=== PATIENT | male | born 1965 | race Caucasian/White ===

== ENCOUNTER 2023-02-22 17:52 | Outpatient (NON) | payer BC, SELFPAY ==
[2023-02-22 18:21] LABS: Hematocrit 35.7 % (42.0-52.0); Hemoglobin 11.2 g/dL (14.0-18.0); Mean Corpuscular HGB Conc 31.4 g/dl (32-36); Mean Corpuscular Hemoglobin 29.6 pg (26-34); Mean Corpuscular Volume 94.4 fl (80-100); Mean Platelet Volume 10.6 fl (7.4-10.4); Platelet Count Result 351 k/mm3 (150-375); Red Blood Count 3.78 M/mm3 (4.6-6.20); White Blood Count 12.7 K/mm3 (4.5-10.0)
[2023-02-22 18:32] LABS: Alanine Aminotransferase 11 U/L (6-50); Albumin Level 3.8 g/dL (3.5-5.1); Alkaline Phosphatase 63 U/L (38-126); Anion Gap 3 mmol/L (8-16); Aspartate Amino Transferase 24 U/L (17-59); Bilirubin,Total 0.4 mg/dL (0.2-1.3); Blood Urea Nitrogen 40 mg/dL (9-20); Calcium 8.8 mg/dL (8.4-10.2); Carbon Dioxide 32 mmol/L (22-30); Chloride 100 mmol/L (98-107); Cholesterol 132 mg/dL (0-200); Estimated Glomerular Filt Rate 39; Glucose 112 mg/dL (65-110); HDL Direct 39 mg/dL; Potassium 3.9 mmol/L (3.4-5.0); Sodium 135 mmol/L (137-145); Triglycerides 100 mg/dL (<150)
[2023-02-22 18:33] LABS: Iron 35 ug/dL (49-181)
[2023-02-22 18:42] LABS: Percent Iron Saturation 15 % (20-50)
[2023-02-22 18:43] LABS: LDL Cholesterol Direct 60 mg/dL
[2023-02-22 19:02] LABS: Thyroid Stimulating Hormone 0.949 uIU/mL (0.465-4.680)
== END 2023-02-22 17:53 | disposition home or self-care (01) ==
PROVIDERS: PCP Internal Medicine; Visit Provider Internal Medicine
DX: I73.9 Peripheral vascular disease, unspecified (principal); D64.9 Anemia, unspecified; N18.32 Chronic kidney disease, stage 3b; R63.4 Abnormal weight loss; E78.5 Hyperlipidemia, unspecified; Z86.39 Personal history of other endocrine, nutritional and metabolic disease
CPT/HCPCS: 80053; 80061; 82728; 83540; 83550; 84443; 85027

== ENCOUNTER 2023-02-24 16:59 | Outpatient (NON) | payer BC, SELFPAY ==
[2023-02-24 17:30] LABS: Appearance Urine Clear (Clear); Bacteria Urine None Seen /hpf; Bilirubin Urine Negative (Negative); Blood Urine Negative (Negative); Color Urine Yellow (Yellow); Glucose Urine UA Negative (Negative); Ketones Urine Negative (Negative); Leukocyte Esterase Ur Trace LEU/UL (NEGATIVE); Nitrate Urine Negative (Negative); Non Pathogenic Casts 0-2; Protein Urine Negative (Negative); RBC Urine 0-2 /hpf (0-2); Specific Grav Ur 1.014 (1.001-1.035); Squamous Epithelial Cell Urine None seen /hpf (Few); Urobilinogen Urine 0.2 mg/dL (<2.0); WBC Urine 0-5 /hpf (0-3); pH Urine 5.5 (5.0-9.0)
[2023-02-24 17:34] LABS: IFOB Positive Control Positive; Immunochemical Fecal Occult Bl Negative (N)
[2023-02-24 17:40] LABS: Add Urine Microscopic? YES
== END 2023-02-24 17:00 | disposition home or self-care (01) ==
PROVIDERS: PCP Internal Medicine; Visit Provider Internal Medicine
DX: I73.9 Peripheral vascular disease, unspecified (principal); D64.9 Anemia, unspecified; N18.32 Chronic kidney disease, stage 3b; R63.4 Abnormal weight loss; E78.5 Hyperlipidemia, unspecified; Z86.39 Personal history of other endocrine, nutritional and metabolic disease
CPT/HCPCS: 81001; 82274

== ENCOUNTER 2023-03-17 14:33 | Outpatient (NON) | payer BC, SELFPAY ==
[2023-03-17 16:27] LABS: Hematocrit 36.8 % (42.0-52.0); Hemoglobin 11.4 g/dL (14.0-18.0); Mean Corpuscular Hemoglobin 29.4 pg (26-34); Mean Corpuscular Volume 94.8 fl (80-100); Mean Platelet Volume 11.3 fl (7.4-10.4); Platelet Count Result 329 k/mm3 (150-375); Red Blood Count 3.88 M/mm3 (4.6-6.20); Red Cell Distribution Width 13.7 % (11.5-14.5); White Blood Count 11.4 K/mm3 (4.5-10.0)
[2023-03-17 16:35] LABS: Alanine Aminotransferase 14 U/L (6-50); Albumin Level 3.8 g/dL (3.5-5.1); Alkaline Phosphatase 60 U/L (38-126); Anion Gap 9 mmol/L (8-16); Aspartate Amino Transferase 24 U/L (17-59); Bilirubin,Total 0.4 mg/dL (0.2-1.3); Blood Urea Nitrogen 36 mg/dL (9-20); Calcium 8.8 mg/dL (8.4-10.2); Carbon Dioxide 30 mmol/L (22-30); Chloride 102 mmol/L (98-107); Cholesterol 133 mg/dL (0-200); Estimated Glomerular Filt Rate 52; Glucose 78 mg/dL (65-110); HDL Direct 47 mg/dL; Potassium 3.9 mmol/L (3.4-5.0); Sodium 141 mmol/L (137-145); Triglycerides 68 mg/dL (<150)
[2023-03-17 16:46] LABS: LDL Cholesterol Direct 61 mg/dL
[2023-03-17 16:50] LABS: Iron 56 ug/dL (49-181)
[2023-03-17 17:01] LABS: Percent Iron Saturation 21 % (20-50)
[2023-03-17 18:11] LABS: Hemoglobin A1C 7.2 % (<5.7)
== END 2023-03-17 14:34 | disposition home or self-care (01) ==
LOC: HOME HLTH 14:36
PROVIDERS: PCP Internal Medicine; Visit Provider Internal Medicine
DX: E78.5 Hyperlipidemia, unspecified (principal); E11.319 Type 2 diabetes mellitus with unspecified diabetic retinopathy without macular edema; D50.9 Iron deficiency anemia, unspecified; Z47.81 Encounter for orthopedic aftercare following surgical amputation; Z89.421 Acquired absence of other right toe(s); Z89.411 Acquired absence of right great toe
CPT/HCPCS: 80053; 80061; 82728; 83036; 83540; 83550; 85027

== ENCOUNTER 2024-08-11 18:28 | Emergency (ER) | payer BC, SELFPAY ==
[2024-08-11 19:01] VITALS: BP 133/71; PULSE 110; RESP 16; TEMP 36.4; O2SAT 100
--- NOTE | 2024-08-11 19:09 | ED.WOUNDLAC ---
HPI - Wound/Laceration General Chief Complaint: Wound/Laceration Stated Complaint: surgical wound check Time Seen by Provider: 08/11/24 19:09 Source: patient, RN notes reviewed and old records reviewed Mode of arrival: ambulatory Limitations: no limitations History of Present Illness HPI narrative: patient status post left BKA, surgery at [facility] over the summer, presents with concerns about his chronic wounds. In addition to the wound at the base of his stump, he is concerned about a pressure wound to the ball of the right foot. He was seen by his creative writer this past Wednesday and by his surgeon this past Wednesday. He has clindamycin and ciprofloxacin on hand from his specialists, had not been taking any, began taking some when he noticed some changes to the wound yesterday. He reports that there has been some increased redness around the wound beds, some drainage. Denies any increased pain. Denies any fever, chills, sweats. Denies any foul odor. Says he just wanted somebody to take a look and see if he was correct in taking his antibiotics as prescribed. Related Data Home Medications Medication Instructions Recorded Confirmed bempedoic acid 180 mg tablet 180 mg PO USEASDIRECTD 06/12/24 08/16/24 (Nexletol) clopidogrel 75 mg tablet 75 mg PO DAILY 06/12/24 08/16/24 cyclosporine 0.05 % eye drops 1 drp EACH EYE Q12H 06/12/24 08/16/24 dorzolamide 2 % eye drops 1 drp EACH EYE BID 06/12/24 08/16/24 glucagon 3 mg/actuation nasal 3 mg intranasal PRN PRN 06/12/24 08/16/24 spray (Baqsimi) Hypoglycemia multivitamin 1 tablet PO QAM 06/12/24 08/16/24 pitavastatin calcium 1 mg tablet 1 mg PO USEASDIRECTD 06/12/24 08/16/24 (Livalo) sodium chloride 5 % eye ointment 1 applic EACH EYE HS 06/12/24 08/16/24 timolol 0.5 % eye drops 1 drp EACH EYE BID 06/12/24 08/16/24 cyclosporine 0.05 % eye drops in a 1 drp EACH EYE Q12H 08/11/24 08/16/24 dropperette (Restasis) hydrochlorothiazide 12.5 mg capsule 12.5 mg PO DAILY 08/11/24 08/16/24 insulin lispro 100 unit/mL See Rx Instructions .Route .COMPLEX 08/11/24 08/16/24 subcutaneous cartridge (Humalog U-100 Insulin) rivaroxaban 2.5 mg tablet (Xarelto) 2.5 mg PO DAILY 08/11/24 08/16/24 Allergies Allergy/AdvReac Type Severity Reaction Status Date / Time mold Allergy Unknown Sneezing Verified 08/16/24 19:31 codeine Allergy VOMITING Verified 08/16/24 19:31 diazepam Allergy Verified 08/16/24 19:31 DIFFICULITY STANDING amlodipine [From [facility]] AdvReac Unknown Verified 08/16/24 19:31 atorvastatin AdvReac Unknown Verified 08/16/24 19:31 bee Allergy Severe Anaphylaxis Uncoded 08/16/24 19:31 hornet Allergy Severe Anaphylaxis Uncoded 08/16/24 19:31 wasp Allergy Severe Anaphylaxis Uncoded 08/16/24 19:31 dust mites Allergy Intermediate Itching Uncoded 08/16/24 19:31 Review of Systems Review of Systems: All systems reviewed & are unremarkable except as noted in HPI and below Constitutional: Constitutional: Reports no additional constitutional complaints ENT: Reports system reviewed and no additional complaints, except as documented Cardiovascular: Cardiovascular: Reports no additional cardiovascular complaints Respiratory: Respiratory: Reports no additional respiratory complaints Gastrointestinal: Gastrointestinal: Reports no additional gastrointestinal complaints Integumentary/Breasts: Skin/Breast: Reports system reviewed and no additional complaints, except as docu, Reports as per HPI, Reports erythema, Reports skin ulcer and Reports wounds PMFSH Past Medical History Medical History Below-knee amputation of left lower extremity CKD (chronic kidney disease) Gait abnormality Impaired mobility and ADLs Osteomyelitis of left foot Social History Social History Smoking status: Never smoker Second hand tobacco smoke exposure: Yes Alcohol intake: unknown Substance us
[2024-08-11 19:10] VITALS: BP 133/71; PULSE 110; RESP 16; TEMP 36.4; O2SAT 100
== END 2024-08-11 19:41 | disposition home or self-care (01) ==
PROVIDERS: Emergency Provider Nurse Practitioner Family; PCP Internal Medicine
DX: T87.89 Other complications of amputation stump (principal); L89.891 Pressure ulcer of other site, stage 1; Z89.512 Acquired absence of left leg below knee; Z79.01 Long term (current) use of anticoagulants; I12.9 Hypertensive chronic kidney disease with stage 1 through stage 4 chronic kidney disease, or unspecified chronic kidney disease; E11.22 Type 2 diabetes mellitus with diabetic chronic kidney disease; N18.9 Chronic kidney disease, unspecified; Z79.4 Long term (current) use of insulin; Z96.41 Presence of insulin pump (external) (internal); I73.9 Peripheral vascular disease, unspecified; E11.43 Type 2 diabetes mellitus with diabetic autonomic (poly)neuropathy; K31.84 Gastroparesis
CPT/HCPCS: 99212; G0463

== ENCOUNTER 2024-08-12 15:24 | Emergency (ER) | payer BC, SELFPAY ==
[2024-08-12 15:42] VITALS: BP 144/67; PULSE 86; RESP 16; TEMP 36.6; O2SAT 98
--- NOTE | 2024-08-12 16:51 | ED.WOUNDLAC ---
HPI - Wound/Laceration General Chief Complaint: Wound/Laceration Stated Complaint: Infection concern,bottom right foot,incision site Source: patient, RN notes reviewed and old records reviewed Mode of arrival: ambulatory Limitations: no limitations History of Present Illness HPI narrative: patient presents requesting wound check. Patient was seen by me at a [facility] yesterday. He was advised to follow with his specialist or go to emergency department with any further concerns. States that he is taking antibiotics as prescribed by his specialist, but wants an opinion on whether or not they are working. He denies any fever, chills, sweats. Says he just wants somebody to look at his wounds Related Data Home Medications Medication Instructions Recorded Confirmed bempedoic acid 180 mg tablet 180 mg PO USEASDIRECTD 06/12/24 08/16/24 (Nexletol) clopidogrel 75 mg tablet 75 mg PO DAILY 06/12/24 08/16/24 cyclosporine 0.05 % eye drops 1 drp EACH EYE Q12H 06/12/24 08/16/24 dorzolamide 2 % eye drops 1 drp EACH EYE BID 06/12/24 08/16/24 glucagon 3 mg/actuation nasal 3 mg intranasal PRN PRN 06/12/24 08/16/24 spray (Baqsimi) Hypoglycemia multivitamin 1 tablet PO QAM 06/12/24 08/16/24 pitavastatin calcium 1 mg tablet 1 mg PO USEASDIRECTD 06/12/24 08/16/24 (Livalo) sodium chloride 5 % eye ointment 1 applic EACH EYE HS 06/12/24 08/16/24 timolol 0.5 % eye drops 1 drp EACH EYE BID 06/12/24 08/16/24 cyclosporine 0.05 % eye drops in a 1 drp EACH EYE Q12H 08/11/24 08/16/24 dropperette (Restasis) hydrochlorothiazide 12.5 mg capsule 12.5 mg PO DAILY 08/11/24 08/16/24 insulin lispro 100 unit/mL See Rx Instructions .Route .COMPLEX 08/11/24 08/16/24 subcutaneous cartridge (Humalog U-100 Insulin) rivaroxaban 2.5 mg tablet (Xarelto) 2.5 mg PO DAILY 08/11/24 08/16/24 Allergies Allergy/AdvReac Type Severity Reaction Status Date / Time mold Allergy Unknown Sneezing Verified 08/16/24 19:31 codeine Allergy VOMITING Verified 08/16/24 19:31 diazepam Allergy Verified 08/16/24 19:31 DIFFICULITY STANDING amlodipine [From [facility]] AdvReac Unknown Verified 08/16/24 19:31 atorvastatin AdvReac Unknown Verified 08/16/24 19:31 bee Allergy Severe Anaphylaxis Uncoded 08/16/24 19:31 hornet Allergy Severe Anaphylaxis Uncoded 08/16/24 19:31 wasp Allergy Severe Anaphylaxis Uncoded 08/16/24 19:31 dust mites Allergy Intermediate Itching Uncoded 08/16/24 19:31 Review of Systems Review of Systems: All systems reviewed & are unremarkable except as noted in HPI and below Constitutional: Constitutional: Reports no additional constitutional complaints ENT: Reports system reviewed and no additional complaints, except as documented Cardiovascular: Cardiovascular: Reports no additional cardiovascular complaints Respiratory: Respiratory: Reports no additional respiratory complaints Gastrointestinal: Gastrointestinal: Reports no additional gastrointestinal complaints Integumentary/Breasts: Skin/Breast: Reports system reviewed and no additional complaints, except as docu, Reports as per HPI, Reports skin ulcer ( ball of right foot) and Reports wounds ( stump of BKA, left side) PMFSH Past Medical History Medical History Below-knee amputation of left lower extremity CKD (chronic kidney disease) Gait abnormality Impaired mobility and ADLs Osteomyelitis of left foot Social History Social History Smoking status: Never smoker Second hand tobacco smoke exposure: Yes Alcohol intake: unknown Substance use: never Substance use type: does not use Do You Feel Safe in your Home?: Yes Lack of Transportation: No Lack of Food: Never True Current Housing: I Have Housing Concerned About Future Housing: No Difficulty Paying Gas/Electric Bills: No Difficulty Paying for Meds: No Currently Unemployed: No Education:
== END 2024-08-12 19:55 | disposition home or self-care (01) ==
PROVIDERS: Emergency Provider Nurse Practitioner Family; PCP Internal Medicine
DX: S91.301A Unspecified open wound, right foot, initial encounter (principal)
CPT/HCPCS: 99212; G0463

== ENCOUNTER 2024-08-16 19:29 | Emergency (ER) | payer BC, SELFPAY ==
--- NOTE | 2024-08-16 19:35 | ED.GENADULT ---
HPI - General Adult General Chief complaint: Wound/Laceration Stated complaint: Lt left leg and Rt leg wound Time Seen by Provider: 08/16/24 19:45 Source: patient, RN notes reviewed and old records reviewed Mode of arrival: ambulatory Limitations: no limitations History of Present Illness HPI narrative: 58-year-old male presents to the [facility] for wounds to the right and left leg. Was evaluated both on the and 12 of August for a wound check. HX of BKA on left , scabs noted. No signs of infection. multiple of toes amputated right, Healed. pressure ulcer noted to planter aspect, apx 2cm diameter, scant amount of serous sanguinous drainage. states that they had been seen at [facility] for 6 week, wound care. Was told they could not return to [facility] further wound care needs. reports he had been seen yesterday at wound care either at [facility] or [facility] in [place] is in the process of changing deployment specialist Reports has a appointment at [facility] tomorrow for therapy Reports they are still take antibiotics that were prescribed Related Data Home Medications Medication Instructions Recorded Confirmed bempedoic acid 180 mg tablet 180 mg PO USEASDIRECTD 06/12/24 08/16/24 (Nexletol) clopidogrel 75 mg tablet 75 mg PO DAILY 06/12/24 08/16/24 cyclosporine 0.05 % eye drops 1 drp EACH EYE Q12H 06/12/24 08/16/24 dorzolamide 2 % eye drops 1 drp EACH EYE BID 06/12/24 08/16/24 glucagon 3 mg/actuation nasal 3 mg intranasal PRN PRN 06/12/24 08/16/24 spray (Baqsimi) Hypoglycemia multivitamin 1 tablet PO QAM 06/12/24 08/16/24 pitavastatin calcium 1 mg tablet 1 mg PO USEASDIRECTD 06/12/24 08/16/24 (Livalo) sodium chloride 5 % eye ointment 1 applic EACH EYE HS 06/12/24 08/16/24 timolol 0.5 % eye drops 1 drp EACH EYE BID 06/12/24 08/16/24 cyclosporine 0.05 % eye drops in a 1 drp EACH EYE Q12H 08/11/24 08/16/24 dropperette (Restasis) hydrochlorothiazide 12.5 mg capsule 12.5 mg PO DAILY 10/04/24 10/09/24 insulin lispro 100 unit/mL See Rx Instructions .Route .COMPLEX 08/11/24 08/16/24 subcutaneous cartridge (Humalog U-100 Insulin) rivaroxaban 2.5 mg tablet (Xarelto) 2.5 mg PO DAILY 08/11/24 08/16/24 Allergies Allergy/AdvReac Type Severity Reaction Status Date / Time mold Allergy Unknown Sneezing Verified 08/16/24 19:31 codeine Allergy VOMITING Verified 08/16/24 19:31 diazepam Allergy Verified 08/16/24 19:31 DIFFICULITY STANDING amlodipine [From [facility]] AdvReac Unknown Verified 08/16/24 19:31 atorvastatin AdvReac Unknown Verified 08/16/24 19:31 bee Allergy Severe Anaphylaxis Uncoded 08/16/24 19:31 hornet Allergy Severe Anaphylaxis Uncoded 08/16/24 19:31 wasp Allergy Severe Anaphylaxis Uncoded 08/16/24 19:31 dust mites Allergy Intermediate Itching Uncoded 08/16/24 19:31 Review of Systems Review of Systems: All systems reviewed & are unremarkable except as noted in HPI and below Constitutional: Constitutional: Reports no additional constitutional complaints Musculoskeletal: Musculoskeletal: Reports as per HPI Integumentary/Breasts: Skin/Breast: Reports as per HPI Neurologic: Reports system reviewed and no additional complaints, except as documented Psychiatric: Psychiatric: Reports no additional psychiatric complaints [facility] Past Medical History Medical History Below-knee amputation of left lower extremity CKD (chronic kidney disease) Gait abnormality Impaired mobility and ADLs Osteomyelitis of left foot Social History Social History Smoking status: Never smoker Second hand tobacco smoke exposure: Yes Alcohol intake: unknown Substance use: never Substance use type: does not use Do You Feel Safe in your Home?: Yes Lack of Transportation: No Lack of Food: Never True Current Housing: I Have Housing Concerned About Future Housing: No Difficulty Paying Gas/Electric Bills: No Diffic
[2024-08-16 19:45] VITALS: BP 143/71; PULSE 87; RESP 16; TEMP 36.8; O2SAT 100
== END 2024-08-16 20:15 | disposition home or self-care (01) ==
PROVIDERS: Emergency Provider Nurse Practitioner; PCP Internal Medicine
DX: Z48.01 Encounter for change or removal of surgical wound dressing (principal); L89.899 Pressure ulcer of other site, unspecified stage; Z89.512 Acquired absence of left leg below knee; N18.9 Chronic kidney disease, unspecified
CPT/HCPCS: 99212; G0463

== ENCOUNTER 2024-08-23 18:48 | Emergency (ER) | payer BC, SELFPAY ==
[2024-08-23 19:03] VITALS: BP 140/71; PULSE 85; RESP 16; TEMP 36.6; O2SAT 100
--- NOTE | 2024-08-23 19:25 | ED.WOUNDLAC ---
HPI - Wound/Laceration General Chief Complaint: Wound/Laceration Stated Complaint: surgical wound check Time Seen by Provider: 08/23/24 19:10 Source: patient, RN notes reviewed and old records reviewed Mode of arrival: ambulatory Limitations: no limitations History of Present Illness HPI narrative: 58 year old male presents to express care accompanied by presents to express care for wound care and evaluation of wounds of right lower foot and of stump of left leg.Patient reports that they saw wound care 8 days ago and have an appointment for wound care tomorrow for evaluation of wounds. states that they saw surgeon yesterday. They are here today for dressing changes states that dressings have to be changed daily no not have home health care in home and she does not feel comfortable doing dressing changes,states needs to be a professional. Patient is diabetic and wears insulin pump. Treatments prior to arrival: other (Patient is followed by wound care and surgeon in [facility]) Related Data Home Medications Medication Instructions Recorded Confirmed bempedoic acid 180 mg tablet 180 mg PO USEASDIRECTD 06/12/24 08/25/24 (Nexletol) clopidogrel 75 mg tablet 75 mg PO DAILY 06/12/24 08/25/24 cyclosporine 0.05 % eye drops 1 drp EACH EYE Q12H 06/12/24 08/25/24 dorzolamide 2 % eye drops 1 drp EACH EYE BID 06/12/24 08/25/24 glucagon 3 mg/actuation nasal 3 mg intranasal PRN PRN 06/12/24 08/25/24 spray (Baqsimi) Hypoglycemia multivitamin 1 tablet PO QAM 06/12/24 08/25/24 pitavastatin calcium 1 mg tablet 1 mg PO USEASDIRECTD 06/12/24 08/25/24 (Livalo) sodium chloride 5 % eye ointment 1 applic EACH EYE HS 06/12/24 08/25/24 timolol 0.5 % eye drops 1 drp EACH EYE BID 06/12/24 08/25/24 cyclosporine 0.05 % eye drops in a 1 drp EACH EYE Q12H 08/11/24 08/25/24 dropperette (Restasis) hydrochlorothiazide 12.5 mg capsule 12.5 mg PO DAILY 08/11/24 08/25/24 insulin lispro 100 unit/mL See Rx Instructions .Route .COMPLEX 08/11/24 08/25/24 subcutaneous cartridge (Humalog U-100 Insulin) rivaroxaban 2.5 mg tablet (Xarelto) 2.5 mg PO DAILY 08/11/24 08/25/24 Allergies Allergy/AdvReac Type Severity Reaction Status Date / Time mold Allergy Unknown Sneezing Verified 08/25/24 18:43 codeine Allergy VOMITING Verified 08/25/24 18:43 diazepam Allergy Verified 08/25/24 18:43 DIFFICULITY STANDING amlodipine [From [facility]] AdvReac Unknown Verified 08/25/24 18:43 atorvastatin AdvReac Unknown Verified 08/25/24 18:43 bee Allergy Severe Anaphylaxis Uncoded 08/25/24 18:43 hornet Allergy Severe Anaphylaxis Uncoded 08/25/24 18:43 wasp Allergy Severe Anaphylaxis Uncoded 08/25/24 18:43 dust mites Allergy Intermediate Itching Uncoded 08/25/24 18:43 Review of Systems Review of Systems: CONSTITUTIONAL: Denies fever, chills, or sweats CARDIOVASCULAR: Denies chest pain, palpitations, or edema. RESPIRATORY: Denies cough or dyspnea. GASTROINTESTINAL: Denies abdominal pain, nausea, vomiting SKIN: Here today for evaluation of wound to the right foot plantar aspect on ball of foot below great toe and of stump of left leg where previous amputation was performed. MUSCULOSKELETAL: Denies myalgia. NEUROLOGIC: Denies headache, numbness All systems reviewed & are unremarkable except as noted in HPI and below PMFSH Past Medical History Medical History Below-knee amputation of left lower extremity CKD (chronic kidney disease) Gait abnormality Impaired mobility and ADLs Osteomyelitis of left foot Social History Social History Smoking status: Never smoker Second hand tobacco smoke exposure: Yes Alcohol intake: unknown Substance use: never Substance use type: does not use Do You Feel Safe in your Home?: Yes Lack of Transportation: No Lack of Food: Never True Current Housing: I Have Housing Concerned About Future Housing: N
== END 2024-08-23 20:00 | disposition home or self-care (01) ==
PROVIDERS: Emergency Provider Registered Nurse; PCP Internal Medicine
DX: Z48.01 Encounter for change or removal of surgical wound dressing (principal); L89.899 Pressure ulcer of other site, unspecified stage; Z89.512 Acquired absence of left leg below knee; N18.9 Chronic kidney disease, unspecified
CPT/HCPCS: 99212; G0463

== ENCOUNTER 2024-08-25 18:36 | Emergency (ER) | payer BC, SELFPAY ==
--- NOTE | 2024-08-25 18:43 | ED.SKABFB ---
HPI - Skin/Abscess/Foreign Bdy General Chief complaint: Skin/Abscess/Foreign Body Stated complaint: Checking dressing on foot Time Seen by Provider: 08/25/24 18:43 Source: patient, RN notes reviewed and old records reviewed Mode of arrival: ambulatory Limitations: no limitations History of Present Illness HPI narrative: Patient and present today for dressing change on patient's left lower extremity stump s/p [id number] amputation. Patient also requesting a wound check/dressing change on a pressure ulcer on the plantar aspect of the right 1st MTP. Patient has [facility] to [facility] multiple times postop requesting dressing changes. Patient was seen by his surgeon on Wednesday, by his project coordinator on Wednesday, here on Wednesday, and wound care clinic yesterday. Patient's states that she does not feel comfortable changing patient's dressings at home by herself. Related Data Home Medications Medication Instructions Recorded Confirmed bempedoic acid 180 mg tablet 180 mg PO USEASDIRECTD 06/12/24 08/27/24 (Nexletol) clopidogrel 75 mg tablet 75 mg PO DAILY 06/12/24 08/27/24 cyclosporine 0.05 % eye drops 1 drp EACH EYE Q12H 06/12/24 08/27/24 dorzolamide 2 % eye drops 1 drp EACH EYE BID 06/12/24 08/27/24 glucagon 3 mg/actuation nasal 3 mg intranasal PRN PRN 06/12/24 08/27/24 spray (Baqsimi) Hypoglycemia multivitamin 1 tablet PO QAM 06/12/24 08/27/24 pitavastatin calcium 1 mg tablet 1 mg PO USEASDIRECTD 06/12/24 08/27/24 (Livalo) sodium chloride 5 % eye ointment 1 applic EACH EYE HS 06/12/24 08/27/24 timolol 0.5 % eye drops 1 drp EACH EYE BID 06/12/24 08/27/24 cyclosporine 0.05 % eye drops in a 1 drp EACH EYE Q12H 08/11/24 08/27/24 dropperette (Restasis) hydrochlorothiazide 12.5 mg capsule 12.5 mg PO DAILY 08/11/24 08/27/24 insulin lispro 100 unit/mL See Rx Instructions .Route .COMPLEX 10/04/24 10/20/24 subcutaneous cartridge (Humalog U-100 Insulin) rivaroxaban 2.5 mg tablet (Xarelto) 2.5 mg PO DAILY 08/11/24 08/27/24 Allergies Allergy/AdvReac Type Severity Reaction Status Date / Time mold Allergy Unknown Sneezing Verified 08/27/24 17:25 codeine Allergy VOMITING Verified 08/27/24 17:25 diazepam Allergy Verified 08/27/24 17:25 DIFFICULITY STANDING amlodipine [From [facility]] AdvReac Unknown Verified 08/27/24 17:25 atorvastatin AdvReac Unknown Verified 08/27/24 17:25 bee Allergy Severe Anaphylaxis Uncoded 08/27/24 17:25 hornet Allergy Severe Anaphylaxis Uncoded 08/27/24 17:25 wasp Allergy Severe Anaphylaxis Uncoded 08/27/24 17:25 dust mites Allergy Intermediate Itching Uncoded 08/27/24 17:25 Review of Systems Review of Systems: All systems reviewed & are unremarkable except as noted in HPI and below Constitutional: Constitutional: Reports no additional constitutional complaints Eyes: Eyes: Reports no additional eye complaints ENT: Reports system reviewed and no additional complaints, except as documented Cardiovascular: Cardiovascular: Reports no additional cardiovascular complaints, Denies chest pain and Denies dyspnea Respiratory: Respiratory: Reports no additional respiratory complaints, Denies cough and Denies dyspnea Musculoskeletal: Musculoskeletal: Reports no additional musculoskeletal complaints Integumentary/Breasts: Skin/Breast: Reports as per HPI and Reports wounds Comments: post op wounds to LLE stump and right plantar foot/toe. Requesting dressing changes Neurologic: Reports system reviewed and no additional complaints, except as documented Psychiatric: Psychiatric: Reports no additional psychiatric complaints PMFSH Past Medical History Medical History Below-knee amputation of left lower extremity CKD (chronic kidney disease) Gait abnormality Impaired mobility and ADLs Osteomyelitis of left foot Social History Social History Smoking status:
[2024-08-25 18:48] VITALS: BP 128/74; PULSE 104; RESP 16; TEMP 36.6; O2SAT 98
== END 2024-08-25 19:27 | disposition home or self-care (01) ==
PROVIDERS: Emergency Provider Nurse Practitioner Family; PCP Internal Medicine
DX: Z48.01 Encounter for change or removal of surgical wound dressing (principal); E11.9 Type 2 diabetes mellitus without complications; Z89.512 Acquired absence of left leg below knee; Z79.4 Long term (current) use of insulin; Z79.899 Other long term (current) drug therapy
CPT/HCPCS: 99212; G0463

== ENCOUNTER 2024-08-26 18:15 | Emergency (ER) | payer BC, SELFPAY ==
[2024-08-26 18:36] VITALS: BP 131/67; PULSE 98; RESP 16; TEMP 36.6; O2SAT 100
--- NOTE | 2024-08-26 18:42 | ED.WOUNDLAC ---
HPI - Wound/Laceration General Chief Complaint: Wound/Laceration Stated Complaint: Left Leg Surgical Wound Irritation Time Seen by Provider: 08/26/24 18:30 Source: patient, family (), RN notes reviewed and old records reviewed Mode of arrival: ambulatory Limitations: no limitations History of Present Illness HPI narrative: Patient and present today for dressing change on patient's left lower extremity stump s/p [id number] amputation as well as a pressure ulcer the plantar aspect the right 1st MTP. Patient has been seen several times in the last couple of weeks here for dressing changes. states that due to her OCD and autism, she does not feel comfortable changing his dressings home for risk of fadi an infection, and pt states he does not trust her to not make the wraps too tight. Patient is followed by surgery, wound care, and podiatry. They do not have home health. Related Data Home Medications Medication Instructions Recorded Confirmed bempedoic acid 180 mg tablet 180 mg PO USEASDIRECTD 06/12/24 08/26/24 (Nexletol) clopidogrel 75 mg tablet 75 mg PO DAILY 06/12/24 08/26/24 cyclosporine 0.05 % eye drops 1 drp EACH EYE Q12H 06/12/24 08/26/24 dorzolamide 2 % eye drops 1 drp EACH EYE BID 06/12/24 08/26/24 glucagon 3 mg/actuation nasal 3 mg intranasal PRN PRN 06/12/24 08/26/24 spray (Baqsimi) Hypoglycemia multivitamin 1 tablet PO QAM 06/12/24 08/26/24 pitavastatin calcium 1 mg tablet 1 mg PO USEASDIRECTD 06/12/24 08/26/24 (Livalo) sodium chloride 5 % eye ointment 1 applic EACH EYE HS 06/12/24 08/26/24 timolol 0.5 % eye drops 1 drp EACH EYE BID 06/12/24 08/26/24 cyclosporine 0.05 % eye drops in a 1 drp EACH EYE Q12H 08/11/24 08/26/24 dropperette (Restasis) hydrochlorothiazide 12.5 mg capsule 12.5 mg PO DAILY 08/11/24 08/26/24 insulin lispro 100 unit/mL See Rx Instructions .Route .COMPLEX 10/04/24 10/19/24 subcutaneous cartridge (Humalog U-100 Insulin) rivaroxaban 2.5 mg tablet (Xarelto) 2.5 mg PO DAILY 08/11/24 08/26/24 Allergies Allergy/AdvReac Type Severity Reaction Status Date / Time mold Allergy Unknown Sneezing Verified 08/26/24 18:19 codeine Allergy VOMITING Verified 08/26/24 18:19 diazepam Allergy Verified 08/26/24 18:19 DIFFICULITY STANDING amlodipine [From [facility]] AdvReac Unknown Verified 08/26/24 18:19 atorvastatin AdvReac Unknown Verified 08/26/24 18:19 bee Allergy Severe Anaphylaxis Uncoded 08/26/24 18:19 hornet Allergy Severe Anaphylaxis Uncoded 08/26/24 18:19 wasp Allergy Severe Anaphylaxis Uncoded 08/26/24 18:19 dust mites Allergy Intermediate Itching Uncoded 08/26/24 18:19 Review of Systems Review of Systems: CONSTITUTIONAL: Denies body aches, fever, chills, or sweats. EYES: Denies visual changes, redness, or discharge. ENT: Denies rhinorrhea, congestion, sore throat, or otalgia. CARDIOVASCULAR: Denies chest pain, palpitations, or edema. RESPIRATORY: Denies cough or dyspnea. GASTROINTESTINAL: Denies abdominal pain, nausea, vomiting, or diarrhea. GENITOURINARY: Denies dysuria or hematuria. SKIN: Left leg wound, right foot wound MUSCULOSKELETAL: Denies back pain, joint pain, or myalgia. NEUROLOGIC: Denies headache, numbness, tingling, or weakness. PSYCH: Denies depression or anxiety. [facility] Past Medical History Medical History Below-knee amputation of left lower extremity CKD (chronic kidney disease) Gait abnormality Impaired mobility and ADLs Osteomyelitis of left foot Social History Social History Smoking status: Never smoker Second hand tobacco smoke exposure: Yes Alcohol intake: unknown Substance use: never Substance use type: does not use Do You Feel Safe in your Home?: Yes Lack of Transportation: No Lack of Food: Never True Current Housing: I Have Housing Concerned About Future Housing: No Diffic
== END 2024-08-26 18:54 | disposition home or self-care (01) ==
PROVIDERS: Emergency Provider Nurse Practitioner; PCP Internal Medicine
DX: Z48.01 Encounter for change or removal of surgical wound dressing (principal); L89.899 Pressure ulcer of other site, unspecified stage; Z89.512 Acquired absence of left leg below knee; N18.9 Chronic kidney disease, unspecified
CPT/HCPCS: 99212; G0463

== ENCOUNTER 2024-08-27 17:04 | Emergency (ER) | payer BC, SELFPAY ==
[2024-08-27 17:24] VITALS: BP 128/64; PULSE 86; RESP 16; TEMP 36.8; O2SAT 100
[2024-08-27 17:25] VITALS: BP 128/64; PULSE 86; RESP 16; TEMP 36.8; O2SAT 100
--- NOTE | 2024-08-27 17:43 | ED.GENADULT ---
HPI - General Adult General Chief complaint: Wound/Laceration Stated complaint: Wound Check Left and Right Leg/Foot Time Seen by Provider: 08/27/24 17:43 Source: patient, RN notes reviewed and old records reviewed Mode of arrival: ambulatory Limitations: no limitations History of Present Illness HPI narrative: 58-year-old male returns to the [facility] requesting a dressing change. Has a left [id number] amputation and a sore to the plantar aspect right foot. Patient has been seeking dressing changes at the [facility] for the last several days. Reports they are trying to get set up with wound as well as Podiatry at [facility] is asking for more 4x4s and Betadine. States that her having a podiatry and a wound care appointment on and Wednesday unsure of which is on which day. They are also stating they are going to try to get a ?emergency appointment with the surgeon Treatments prior to arrival: other (dressing change) Related Data Home Medications Medication Instructions Recorded Confirmed bempedoic acid 180 mg tablet 180 mg PO USEASDIRECTD 06/12/24 08/27/24 (Nexletol) clopidogrel 75 mg tablet 75 mg PO DAILY 06/12/24 08/27/24 cyclosporine 0.05 % eye drops 1 drp EACH EYE Q12H 06/12/24 08/27/24 dorzolamide 2 % eye drops 1 drp EACH EYE BID 06/12/24 08/27/24 glucagon 3 mg/actuation nasal 3 mg intranasal PRN PRN 06/12/24 08/27/24 spray (Baqsimi) Hypoglycemia multivitamin 1 tablet PO QAM 06/12/24 08/27/24 pitavastatin calcium 1 mg tablet 1 mg PO USEASDIRECTD 06/12/24 08/27/24 (Livalo) sodium chloride 5 % eye ointment 1 applic EACH EYE HS 06/12/24 08/27/24 timolol 0.5 % eye drops 1 drp EACH EYE BID 06/12/24 08/27/24 cyclosporine 0.05 % eye drops in a 1 drp EACH EYE Q12H 08/11/24 08/27/24 dropperette (Restasis) hydrochlorothiazide 12.5 mg capsule 12.5 mg PO DAILY 08/11/24 08/27/24 insulin lispro 100 unit/mL See Rx Instructions .Route .COMPLEX 08/11/24 08/27/24 subcutaneous cartridge (Humalog U-100 Insulin) rivaroxaban 2.5 mg tablet (Xarelto) 2.5 mg PO DAILY 08/11/24 08/27/24 Allergies Allergy/AdvReac Type Severity Reaction Status Date / Time mold Allergy Unknown Sneezing Verified 08/27/24 17:25 codeine Allergy VOMITING Verified 08/27/24 17:25 diazepam Allergy Verified 08/27/24 17:25 DIFFICULITY STANDING amlodipine [From Norvasc] AdvReac Unknown Verified 08/27/24 17:25 atorvastatin AdvReac Unknown Verified 08/27/24 17:25 bee Allergy Severe Anaphylaxis Uncoded 08/27/24 17:25 hornet Allergy Severe Anaphylaxis Uncoded 08/27/24 17:25 wasp Allergy Severe Anaphylaxis Uncoded 08/27/24 17:25 dust mites Allergy Intermediate Itching Uncoded 08/27/24 17:25 Review of Systems Review of Systems: All systems reviewed & are unremarkable except as noted in HPI and below Constitutional: Constitutional: Reports no additional constitutional complaints ENT: Reports system reviewed and no additional complaints, except as documented Cardiovascular: Cardiovascular: Reports no additional cardiovascular complaints, Denies chest pain and Denies dyspnea Respiratory: Respiratory: Reports no additional respiratory complaints, Denies chest congestion, Denies cough and Denies dyspnea Gastrointestinal: Gastrointestinal: Reports no additional gastrointestinal complaints, Denies abdominal pain, Denies nausea and Denies vomiting Musculoskeletal: Musculoskeletal: Reports no additional musculoskeletal complaints Integumentary/Breasts: Skin/Breast: Reports as per HPI PMF Past Medical History Medical History Below-knee amputation of left lower extremity CKD (chronic kidney disease) Gait abnormality Impaired mobility and ADLs Osteomyelitis of left foot Social History Social History Smoking status: Never smoker Second hand tobacco smoke exposure: Yes Alcohol intake: unknown Substance use: ne
== END 2024-08-27 18:15 | disposition home or self-care (01) ==
PROVIDERS: Emergency Provider Nurse Practitioner; PCP Internal Medicine
DX: Z48.01 Encounter for change or removal of surgical wound dressing (principal); L89.899 Pressure ulcer of other site, unspecified stage; Z89.512 Acquired absence of left leg below knee; N18.9 Chronic kidney disease, unspecified
CPT/HCPCS: 99212; G0463

== ENCOUNTER 2024-08-30 19:11 | Emergency (ER) | payer BC, SELFPAY ==
--- NOTE | 2024-08-30 19:28 | ED.WOUNDLAC ---
HPI - Wound/Laceration General Chief Complaint: Wound/Laceration Stated Complaint: LT Leg / Rt Foot Injury Time Seen by Provider: 08/30/24 19:40 Source: patient and RN notes reviewed Mode of arrival: ambulatory Limitations: no limitations History of Present Illness HPI narrative: 4-year-old male presents with concern for dressing change to his left leg amputation site and right foot pressure wound. Denies any current concerns, redness, warmth, purulence drainage. Related Data Home Medications Medication Instructions Recorded Confirmed bempedoic acid 180 mg tablet 180 mg PO USEASDIRECTD 06/12/24 08/27/24 (Nexletol) clopidogrel 75 mg tablet 75 mg PO DAILY 06/12/24 08/27/24 cyclosporine 0.05 % eye drops 1 drp EACH EYE Q12H 06/12/24 08/27/24 dorzolamide 2 % eye drops 1 drp EACH EYE BID 06/12/24 08/27/24 glucagon 3 mg/actuation nasal 3 mg intranasal PRN PRN 06/12/24 08/27/24 spray (Baqsimi) Hypoglycemia multivitamin 1 tablet PO QAM 06/12/24 08/27/24 pitavastatin calcium 1 mg tablet 1 mg PO USEASDIRECTD 06/12/24 08/27/24 (Livalo) sodium chloride 5 % eye ointment 1 applic EACH EYE HS 06/12/24 08/27/24 timolol 0.5 % eye drops 1 drp EACH EYE BID 06/12/24 08/27/24 cyclosporine 0.05 % eye drops in a 1 drp EACH EYE Q12H 08/11/24 08/27/24 dropperette (Restasis) hydrochlorothiazide 12.5 mg capsule 12.5 mg PO DAILY 08/11/24 08/27/24 insulin lispro 100 unit/mL See Rx Instructions .Route .COMPLEX 08/11/24 08/27/24 subcutaneous cartridge (Humalog U-100 Insulin) rivaroxaban 2.5 mg tablet (Xarelto) 2.5 mg PO DAILY 08/11/24 08/27/24 Allergies Allergy/AdvReac Type Severity Reaction Status Date / Time mold Allergy Unknown Sneezing Verified 08/27/24 17:25 codeine Allergy VOMITING Verified 08/27/24 17:25 diazepam Allergy Verified 08/27/24 17:25 DIFFICULITY STANDING amlodipine [From [facility]] AdvReac Unknown Verified 08/27/24 17:25 atorvastatin AdvReac Unknown Verified 08/27/24 17:25 bee Allergy Severe Anaphylaxis Uncoded 08/27/24 17:25 hornet Allergy Severe Anaphylaxis Uncoded 08/27/24 17:25 wasp Allergy Severe Anaphylaxis Uncoded 08/27/24 17:25 dust mites Allergy Intermediate Itching Uncoded 08/27/24 17:25 Review of Systems Review of Systems: CONSTITUTIONAL: Denies malaise, chills, sweats, or fever. SKIN: Reports chronic wounds on left leg and right foot MUSCULOSKELETAL: Denies muscle skeletal pain NEUROLOGIC: Denies numbness, weakness All systems reviewed & are unremarkable except as noted in HPI and below PMFSH Past Medical History Medical History Below-knee amputation of left lower extremity CKD (chronic kidney disease) Gait abnormality Impaired mobility and ADLs Osteomyelitis of left foot Social History Social History Smoking status: Never smoker Second hand tobacco smoke exposure: Yes Alcohol intake: unknown Substance use: never Substance use type: does not use Do You Feel Safe in your Home?: Yes Lack of Transportation: No Lack of Food: Never True Current Housing: I Have Housing Concerned About Future Housing: No Difficulty Paying Gas/Electric Bills: No Difficulty Paying for Meds: No Currently Unemployed: No Education: Don't Know Difficulty w/ Childcare or Family Care: No Spiritual care concerns: No Comments At time of signature, agree with nursing past medical, surgical, social and family history. There is no relevant family history pertinent to the presenting complaint Exam Narrative: GENERAL: Well-appearing, well-nourished, and in no acute distress. HEAD: Normocephalic, atraumatic. EYES: PERRLA, conjunctivae clear ENT: Mucous membranes moist. NECK: Supple. No lymphadenopathy CHEST: Clear to auscultation. No respiratory distress. HEART: Regular rate and rhythm. SKIN: Warm, dry. Pedal aspect of the right foot has circumferential c
[2024-08-30 19:32] VITALS: BP 136/87; PULSE 91; RESP 20; TEMP 36.2; O2SAT 100
== END 2024-08-30 19:54 | disposition home or self-care (01) ==
PROVIDERS: Emergency Provider Nurse Practitioner; PCP Internal Medicine
DX: Z48.01 Encounter for change or removal of surgical wound dressing (principal); N18.9 Chronic kidney disease, unspecified
CPT/HCPCS: 99212; G0463

== ENCOUNTER 2024-09-02 19:19 | Emergency (ER) | payer BC, SELFPAY ==
--- NOTE | 2024-09-02 19:24 | ED_ITS ---
HPI - General Adult General Chief complaint: Wound/Laceration Stated complaint: LT Leg , RT Foot Womb Related Data Home Medications Medication Instructions Recorded Confirmed bempedoic acid 180 mg tablet 180 mg PO USEASDIRECTD 06/12/24 08/27/24 (Nexletol) clopidogrel 75 mg tablet 75 mg PO DAILY 06/12/24 08/27/24 cyclosporine 0.05 % eye drops 1 drp EACH EYE Q12H 06/12/24 08/27/24 dorzolamide 2 % eye drops 1 drp EACH EYE BID 06/12/24 08/27/24 glucagon 3 mg/actuation nasal 3 mg intranasal PRN PRN 06/12/24 08/27/24 spray (Baqsimi) Hypoglycemia multivitamin 1 tablet PO QAM 06/12/24 08/27/24 pitavastatin calcium 1 mg tablet 1 mg PO USEASDIRECTD 06/12/24 08/27/24 (Livalo) sodium chloride 5 % eye ointment 1 applic EACH EYE HS 06/12/24 08/27/24 timolol 0.5 % eye drops 1 drp EACH EYE BID 06/12/24 08/27/24 cyclosporine 0.05 % eye drops in a 1 drp EACH EYE Q12H 08/11/24 08/27/24 dropperette (Restasis) hydrochlorothiazide 12.5 mg capsule 12.5 mg PO DAILY 08/11/24 08/27/24 insulin lispro 100 unit/mL See Rx Instructions .Route .COMPLEX 08/11/24 08/27/24 subcutaneous cartridge (Humalog U-100 Insulin) rivaroxaban 2.5 mg tablet (Xarelto) 2.5 mg PO DAILY 08/11/24 08/27/24 Allergies Allergy/AdvReac Type Severity Reaction Status Date / Time mold Allergy Unknown Sneezing Verified 08/27/24 17:25 codeine Allergy VOMITING Verified 08/27/24 17:25 diazepam Allergy Verified 08/27/24 17:25 DIFFICULITY STANDING amlodipine [From [facility]] AdvReac Unknown Verified 08/27/24 17:25 atorvastatin AdvReac Unknown Verified 08/27/24 17:25 bee Allergy Severe Anaphylaxis Uncoded 08/27/24 17:25 hornet Allergy Severe Anaphylaxis Uncoded 08/27/24 17:25 wasp Allergy Severe Anaphylaxis Uncoded 08/27/24 17:25 dust mites Allergy Intermediate Itching Uncoded 08/27/24 17:25 [facility] Past Medical History Medical History Below-knee amputation of left lower extremity CKD (chronic kidney disease) Gait abnormality Impaired mobility and ADLs Osteomyelitis of left foot Social History Social History Smoking status: Never smoker Second hand tobacco smoke exposure: Yes Alcohol intake: unknown Substance use: never Substance use type: does not use Do You Feel Safe in your Home?: Yes Lack of Transportation: No Lack of Food: Never True Current Housing: I Have Housing Concerned About Future Housing: No Difficulty Paying Gas/Electric Bills: No Difficulty Paying for Meds: No Currently Unemployed: No Education: Don't Know Difficulty w/ Childcare or Family Care: No Spiritual care concerns: No Discharge Plan Discharge Clinical Impression: Encounter for post surgical wound check Patient Disposition: Home, Self-Care Condition: Stable Instructions: Antibiotic Form, Acute Wounds (ED) Additional Instructions: clean wound with soap water, pat dry and apply antibiotic ointment that was prescribed 2 today. Please follow-up with surgeon or surgeon's office and continue to work with him on getting you home house you do need wound care daily and checks through home health 3 a surgeon's office. If your symptoms worsen please go to the ER for further evaluation Prescriptions: New mupirocin 2 % ointment 1 applic topical BID Qty: 22 0RF No Action Xarelto 2.5 mg tablet 2.5 mg PO DAILY cyclosporine [Restasis] 0.05 % Dropperette 1 drp EACH EYE Q12H hydrochlorothiazide 12.5 mg Capsule 12.5 mg PO DAILY Humalog U-100 Insulin 100 unit/mL Cartridge See Rx Instructions .ROUTE .COMPLEX Rx Instructions: pump multivitamin Tablet 1 tablet PO QAM clopidogrel 75 mg Tablet 75 mg PO DAILY sodium chloride 5 % Ointment 1 applic EACH EYE HS Rx Instructions: 1/4 inch into both eyes timolol 0.5 % Drops 1 drp EACH EYE BID dorzolamide 2 % Drops 1 drp EACH EYE BID pitavastatin calcium [Livalo] 1 mg Tablet 1 mg PO USEASDIRECTD cyclosporine 0.05 % Drops 1 drp EACH EYE Q12H Baqsimi 3 mg/actuation [place],Non-Aerosol 3 mg INTRANASAL PRN PRN (Reason: Hypoglycemia) Nexletol 180 mg Tablet 180 mg PO USEASDIRECTD Follow-up/Referrals: Tomasa Joshi MD [Primary Care Provider] - Time of Disposition: 20:11
[2024-09-02 19:28] VITALS: BP 165/72; PULSE 105; RESP 18; TEMP 36.3; O2SAT 100
--- NOTE | 2024-09-03 08:07 | ED.GENADULT ---
HPI - General Adult General Chief complaint: Wound/Laceration Stated complaint: LT Leg , RT Foot Womb Time Seen by Provider: 09/02/24 19:25 Source: patient Mode of arrival: wheelchair Limitations: physical limitation History of Present Illness HPI narrative: 58-year-old male patient presents to the [facility] with request for postsurgical wound check of left BKA. This is the patient's 9th time to the [facility] is this month for wound checks. Patient family states that [facility] they did not discharge him home with any type of resources including no home health. he does go to the [facility] Clinic but only once a week and he does see his surgeon at [facility] once every 2 weeks. Patient family states that they were told by [facility] to come to the Urgent [facility] for wound checks. Patient is a type 1 diabetic and had a left BKA. Patient also wanted a wound to his right foot checked and has had 3 toes amputated from the right foot. Patient denies any chest pain, shortness of breath. Denies any fevers, body aches or chills. Patient is currently on amoxicillin for a root canal. Related Data Home Medications Medication Instructions Recorded Confirmed bempedoic acid 180 mg tablet 180 mg PO USEASDIRECTD 06/12/24 08/27/24 (Nexletol) clopidogrel 75 mg tablet 75 mg PO DAILY 06/12/24 08/27/24 cyclosporine 0.05 % eye drops 1 drp EACH EYE Q12H 06/12/24 08/27/24 dorzolamide 2 % eye drops 1 drp EACH EYE BID 06/12/24 08/27/24 glucagon 3 mg/actuation nasal 3 mg intranasal PRN PRN 06/12/24 08/27/24 spray (Baqsimi) Hypoglycemia multivitamin 1 tablet PO QAM 06/12/24 08/27/24 pitavastatin calcium 1 mg tablet 1 mg PO USEASDIRECTD 06/12/24 08/27/24 (Livalo) sodium chloride 5 % eye ointment 1 applic EACH EYE HS 06/12/24 08/27/24 timolol 0.5 % eye drops 1 drp EACH EYE BID 06/12/24 08/27/24 cyclosporine 0.05 % eye drops in a 1 drp EACH EYE Q12H 08/11/24 08/27/24 dropperette (Restasis) hydrochlorothiazide 12.5 mg capsule 12.5 mg PO DAILY 08/11/24 08/27/24 insulin lispro 100 unit/mL See Rx Instructions .Route .COMPLEX 08/11/24 08/27/24 subcutaneous cartridge (Humalog U-100 Insulin) rivaroxaban 2.5 mg tablet (Xarelto) 2.5 mg PO DAILY 08/11/24 08/27/24 Allergies Allergy/AdvReac Type Severity Reaction Status Date / Time mold Allergy Unknown Sneezing Verified 08/27/24 17:25 codeine Allergy VOMITING Verified 08/27/24 17:25 diazepam Allergy Verified 08/27/24 17:25 DIFFICULITY STANDING amlodipine [From [facility]] AdvReac Unknown Verified 08/27/24 17:25 atorvastatin AdvReac Unknown Verified 08/27/24 17:25 bee Allergy Severe Anaphylaxis Uncoded 08/27/24 17:25 hornet Allergy Severe Anaphylaxis Uncoded 08/27/24 17:25 wasp Allergy Severe Anaphylaxis Uncoded 08/27/24 17:25 dust mites Allergy Intermediate Itching Uncoded 08/27/24 17:25 Review of Systems Review of Systems: CONSTITUTIONAL: Denies fever, chills, or sweats. EYES: Denies visual changes, redness, or discharge. ENT: Denies rhinorrhea, congestion, sore throat, or otalgia. CARDIOVASCULAR: Denies chest pain, palpitations, or edema. RESPIRATORY: Denies cough or dyspnea. GASTROINTESTINAL: Denies abdominal pain, nausea, vomiting, or diarrhea. GENITOURINARY: Denies dysuria or hematuria. SKIN: Denies rash or itching. Wound check of left BKA MUSCULOSKELETAL: Denies back pain, joint pain, or myalgia. NEUROLOGIC: Denies headache, numbness, or weakness. PSYCHIATRIC: Denies anxiety or depression. [facility] Past Medical History Medical History Below-knee amputation of left lower extremity CKD (chronic kidney disease) Gait abnormality Impaired mobility and ADLs Osteomyelitis of left foot Social History Social History Smoking status: Never smoker Second hand tobacco smoke exposure: Yes Alcohol intake: unknown Substance use: never Substance use type: does not use Do You Feel Safe in your Home?: Yes Lack of Transportation: No Lack of Food: Never True Current Housing: I Have Housing Concerned About Future Housing: No Difficulty Paying Gas/Electric Bills: No Difficulty Paying for Meds: No Currently Unemployed: No Education: Don't Know Difficulty w/ Childcare or Family Care: No Spiritual care concerns: No Exam Narrative: GENERAL: Well-appearing, well-nourished, and in no acute distress. HEAD: Normocephalic, atraumatic. EYES: PERRLA and EOMI. ENT: Nares clear, no rhinorrhea or epistaxis. Mucous membranes moist. NECK: Supple. No lymphadenopathy CHEST: Clear to auscultation. No respiratory distress. HEART: Regular rate and rhythm. No murmur heard. Normal peripheral pulses. ABDOMEN: Soft, nontender, nondistended, normal active bowel sounds. EXTREMITIES: Normal range of motion. No edema. SKIN: Warm, dry, no rash. patient has left BKA with what appears to be to black in scabby wounds along the incision site. There is some yellow pus noted to the left side with sutures intact. Nose surrounding warmth or bright erythema present. Patient does have a stage II ulcer to the bottom of the right foot no surrounding erythema, warmth or colored discharge present. Patient has decreased sensation to the left BKA area as well as the right foot. NEURO: No focal deficits. Alert and oriented x3. Course Course Level of Care: Express Care Visit Vital Signs Vital signs: Vital Signs Temperature 36.3 C L 09/02/24 19:28 Pulse Rate 105 H 09/02/24 19:28 Respiratory Rate 18 09/02/24 19:28 Blood Pressure 165/72 H 09/02/24 19:28 Pulse Oximetry 100 09/02/24 19:28 Oxygen Delivery Room Air 09/02/24 19:28 Temperature 36.3 C L 09/02/24 19:28 Pulse Rate 105 H 09/02/24 19:28 Respiratory Rate 18 09/02/24 19:28 Blood Pressure 165/72 H 09/02/24 19:28 Pulse Oximetry 100 09/02/24 19:28 Oxygen Delivery Room Air 09/02/24 19:28 Vital signs reviewed. The patient has been informed that they may have pre-hypertension or Hypertension based on a BP reading in the department. I recommend that the patient call the primary care provider listed on their discharge instructions or a physician of their choice this week to arrange follow up for further evaluation of possible pre-hypertension or Hypertension Medical Decision Making MDM Narrative Medical decision making narrative: discussed with patient and family that I will go ahead and provide him some you pro sit to put on the wound to help hopefully decrease the yellow drainage however because he is a type 1 diabetic, had necrosis, and has had multiple complications with this route and Wound the Urgent Care is not the most appropriate place to monitor this wound. Discussed with them in depth about how important it is to see a specialized wound care clinic and his surgeon for ongoing care. Discussed with them that we do not have the resources in the Urgent Care to provide proper wound assessments and treatment. Discussed with him that is going to cost him more money to come to the urgent care rather than increasing their appointments with the wound care clinic. Discussed with them I highly recommend that they call the Wound Care Clinic and increase their appointments there to at least 3 days a week if they have complications or if concern for complications during the weekend they are welcome to come to the Urgent Care to assess those complications but other than that consistent wound care should be done through the wound care clinic or through the surgeons follow-up. Discussed with them that I highly recommend they request a social media manager some type of window caser to help him navigate the healthcare system and be pointed in the right direction for proper resource nurse during this time. Discussed with patient family in depth this time symptoms of infection and how to dress the wounds. Discussed with them that they need to call on Wednesday for further evaluation with the wound care clinic and decrease how often they are coming to the Express cares. Differential Diagnosis Differential Diagnosis: Differential diagnosis: Abscess, cellulitis, hidradenitis, laceration, puncture wound. Vital Signs Vital Signs: Vital Signs Temperature 36.3 C L 09/02/24 19:28 Pulse Rate 105 H 09/02/24 19:28 Respiratory Rate 18 09/02/24 19:28 Blood Pressure 165/72 H 09/02/24 19:28 Pulse Oximetry 100 09/02/24 19:28 Oxygen Delivery Room Air 09/02/24 19:28 Temperature 36.3 C L 09/02/24 19:28 Pulse Rate 105 H 09/02/24 19:28 Respiratory Rate 18 09/02/24 19:28 Blood Pressure 165/72 H 09/02/24 19:28 Pulse Oximetry 100 09/02/24 19:28 Oxygen Delivery Room Air 09/02/24 19:28 Critical Care Time Critical Care Time Critical Care Time: No Discharge Plan Discharge Clinical Impression: Encounter for post surgical wound check Patient Disposition: Home, Self-Care Condition: Stable Instructions: Antibiotic Form, Acute Wounds (ED) Additional Instructions: clean wound with soap water, pat dry and apply antibiotic ointment that was prescribed 2 today. Please follow-up with surgeon or surgeon's office and continue to work with him on getting you home house you do need wound care daily and checks through home health 3 a surgeon's office. If your symptoms worsen please go to the ER for further evaluation Prescriptions: New mupirocin 2 % ointment 1 applic topical BID Qty: 22 0RF No Action Xarelto 2.5 mg tablet 2.5 mg PO DAILY cyclosporine [Restasis] 0.05 % Dropperette 1 drp EACH EYE Q12H hydrochlorothiazide 12.5 mg Capsule 12.5 mg PO DAILY Humalog U-100 Insulin 100 unit/mL Cartridge See Rx Instructions .ROUTE .COMPLEX Rx Instructions: pump multivitamin Tablet 1 tablet PO QAM clopidogrel 75 mg Tablet 75 mg PO DAILY sodium chloride 5 % Ointment 1 applic EACH EYE HS Rx Instructions: 1/4 inch into both eyes timolol 0.5 % Drops 1 drp EACH EYE BID dorzolamide 2 % Drops 1 drp EACH EYE BID pitavastatin calcium [Livalo] 1 mg Tablet 1 mg PO USEASDIRECTD cyclosporine 0.05 % Drops 1 drp EACH EYE Q12H Baqsimi 3 mg/actuation [place],Non-Aerosol 3 mg INTRANASAL PRN PRN (Reason: Hypoglycemia) Nexletol 180 mg Tablet 180 mg PO USEASDIRECTD Follow-up/Referrals: Tomasa Joshi MD [Primary Care Provider] - Time of Disposition: 20:11
== END 2024-09-02 20:28 | disposition home or self-care (01) ==
PROVIDERS: Emergency Provider Nurse Practitioner Family; PCP Internal Medicine
DX: Z48.01 Encounter for change or removal of surgical wound dressing (principal); Z89.512 Acquired absence of left leg below knee; L89.892 Pressure ulcer of other site, stage 2; E10.22 Type 1 diabetes mellitus with diabetic chronic kidney disease; N18.9 Chronic kidney disease, unspecified; Z79.4 Long term (current) use of insulin; Z89.421 Acquired absence of other right toe(s); Z79.01 Long term (current) use of anticoagulants
CPT/HCPCS: 99213; G0463

== ENCOUNTER 2024-09-03 19:57 | Emergency (ER) | payer BC, SELFPAY ==
--- NOTE | 2024-09-03 19:59 | ED_ITS ---
HPI - General Adult General Chief complaint: Wound/Laceration Stated complaint: Blister Right Foot Time Seen by Provider: 09/03/24 19:59 Source: patient Mode of arrival: ambulatory Limitations: no limitations History of Present Illness HPI narrative: [facility] for wound check of the left BKA and the right foot. Patient is requesting a wound check and dressing change. Denies any fevers, body aches or chills patient states he is concerned because earlier is a little bit more oozing to the foot than yesterday. 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 Related Data Home Medications Medication Instructions Recorded Confirmed bempedoic acid 180 mg tablet 180 mg PO USEASDIRECTD 06/12/24 08/27/24 (Nexletol) clopidogrel 75 mg tablet 75 mg PO DAILY 06/12/24 08/27/24 cyclosporine 0.05 % eye drops 1 drp EACH EYE Q12H 06/12/24 08/27/24 dorzolamide 2 % eye drops 1 drp EACH EYE BID 06/12/24 08/27/24 glucagon 3 mg/actuation nasal 3 mg intranasal PRN PRN 06/12/24 08/27/24 spray (Baqsimi) Hypoglycemia multivitamin 1 tablet PO QAM 06/12/24 08/27/24 pitavastatin calcium 1 mg tablet 1 mg PO USEASDIRECTD 06/12/24 08/27/24 (Livalo) sodium chloride 5 % eye ointment 1 applic EACH EYE HS 06/12/24 08/27/24 timolol 0.5 % eye drops 1 drp EACH EYE BID 06/12/24 08/27/24 cyclosporine 0.05 % eye drops in a 1 drp EACH EYE Q12H 08/11/24 08/27/24 dropperette (Restasis) hydrochlorothiazide 12.5 mg capsule 12.5 mg PO DAILY 08/11/24 08/27/24 insulin lispro 100 unit/mL See Rx Instructions .Route .COMPLEX 08/11/24 08/27/24 subcutaneous cartridge (Humalog U-100 Insulin) rivaroxaban 2.5 mg tablet (Xarelto) 2.5 mg PO DAILY 08/11/24 08/27/24 Allergies Allergy/AdvReac Type Severity Reaction Status Date / Time mold Allergy Unknown Sneezing Verified 08/27/24 17:25 codeine Allergy VOMITING Verified 08/27/24 17:25 diazepam Allergy Verified 08/27/24 17:25 DIFFICULITY STANDING [facility] AdvReac Unknown Verified 08/27/24 17:25 atorvastatin AdvReac Unknown Verified 08/27/24 17:25 bee Allergy Severe Anaphylaxis Uncoded 08/27/24 17:25 hornet Allergy Severe Anaphylaxis Uncoded 08/27/24 17:25 wasp Allergy Severe Anaphylaxis Uncoded 08/27/24 17:25 dust mites Allergy Intermediate Itching Uncoded 08/27/24 17:25 Review of Systems Review of Systems: CONSTITUTIONAL: Denies fever, chills, or sweats. EYES: Denies visual changes, redness, or discharge. ENT: Denies rhinorrhea, congestion, sore throat, or otalgia. CARDIOVASCULAR: Denies chest pain, palpitations, or edema. RESPIRATORY: Denies cough or dyspnea. GASTROINTESTINAL: Denies abdominal pain, nausea, vomiting, or diarrhea. GENITOURINARY: Denies dysuria or hematuria. SKIN: Denies rash or itching. Positive wound to left BKA and ulcer to right foot MUSCULOSKELETAL: Denies back pain, joint pain, or myalgia. NEUROLOGIC: Denies headache, numbness, or weakness. PSYCHIATRIC: Denies anxiety or depression. [facility] Past Medical History Medical History Below-knee amputation of left lower extremity CKD (chronic kidney disease) Gait abnormality Impaired mobility and ADLs Osteomyelitis of left foot Social History Social History Smoking status: Never smoker Second hand tobacco smoke exposure: Yes Alcohol intake: unknown Substance use: never Substance use type: does not use Do You Feel Safe in your Home?: Yes Lack of Transportation: No Lack of Food: Never True Current Housing: I Have Housing Concerned About Future Housing: No Difficulty Paying Gas/Electric Bills: No Difficulty Paying for Meds: No Currently Unemployed: No Education: Don't Know Difficulty w/ Childcare or Family Care: No Spiritual care concerns: No Comments At the time of my signature I agree with nursing past medical history, surgical, social, and family history. There is no relevant family history pertinent to the presenting complaint. Exam Narrative: GENERAL: Well-appearing, well-nourished, and in no acute distress. HEAD: Normocephalic, atraumatic. EYES: PERRLA and EOMI. ENT: Nares clear, no rhinorrhea or epistaxis. Mucous membranes moist. NECK: Supple. No lymphadenopathy CHEST: Clear to auscultation. No respiratory distress. HEART: Regular rate and rhythm. No murmur heard. Normal peripheral pulses. ABDOMEN: Soft, nontender, nondistended, normal active bowel sounds. EXTREMITIES: Normal range of motion. No edema. SKIN: Warm, dry, no rash. patient has stage II ulcer of the right foot that is unchanged from yesterday. Patient has 2 black scabbed wounds with sutures intact to the left BKA. Continues to have Increased yellow pus to to the wound on the lateral side of the left BKA with increasing erythema and slight warmth present. The wound appears worse than it did yesterday. NEURO: No focal deficits. Alert and oriented x3. Course Course Level of Care: Express Care Visit Vital Signs Vital signs: Vital signs reviewed. Medical Decision Making MDM Narrative Medical decision making narrative: Discussed with patient that given his history of worsening infection and how quickly they progress and the fact that he has had that type 1 diabetic I think he needs to go the emergency department for further evaluation and testing of blood, cultures just to make sure that this is not getting into the blood stream. Discussed with him again that I am not a surgical wound nurse and I do not have anything here for treatment including no IV fluids, IV antibiotics or way to check his blood. Recur discussed with patient I highly recommended that he go to [facility] for further evaluation. Patient and family are upset and states that they would like to be transferred to [place] discussed with them that I am happy to call EMS and they can discuss if they can transfer him to [place] or if they have to recur or if they are required to transfer to the nearest hospital but I definitely can call 911 and they can have that conversation with EMS. While on the phone with [facility] giving report patient's came in and states that they were not going by EMS and that they [place] going [place] to [facility] ER so that they could be seen by his doctors. Discussed with them that I will have them sign a refusal form refusing to transferred Rl and I did call [place] the ER and gave them r eport on the patient that will be coming over to the ER for the wound check. I did notify them that I did call the [place] ER and that they were aware that he would be coming. During the time while I am trying to explain to them that we need to have him to go to the ER for further evaluation patient's is yelling and screaming at me and stating that I am working her because she thinks he is going to . Discussed with the that patient is mentating well his oxygen and his vitals are stable and I do not think that he is actively dying. Discussed with her that however because of his history and the fact that we do not have advanced capabilities here I do think that he needs a further evaluation to assess if this infection is getting into the blood stream. Patient continues to yell and talk over the provider as I am trying to explain why they need to be seen in the emergency department. is very upset that I will not put Betadine on the wound but I did re-dress the wound to get them over to the emergency department. Discussed with her that the patient is stable at this time and I think that he is perfectly stable in order to [place] and drive [place] the [place] for [place]. Patient continues to yell at the provider. Both parties ended up leaving in private vehicle and states they will be going to [place]. Differential Diagnosis Differential Diagnosis: Differential diagnosis Abscess, cellulitis, hidradenitis, laceration, puncture wound. Critical Care Time Critical Care Time Critical Care Time: No Discharge Plan Discharge Clinical Impression: Encounter for post surgical wound check Patient Disposition: Acute Care Hospital Condition: Stable Instructions: Antibiotic Form, Acute Wounds (ED) Prescriptions: No Action mupirocin 2 % ointment 1 applic topical BID Qty: 22 0RF Xarelto 2.5 mg tablet 2.5 mg PO DAILY cyclosporine [Restasis] 0.05 % Dropperette 1 drp EACH EYE Q12H hydrochlorothiazide 12.5 mg Capsule 12.5 mg PO DAILY Humalog U-100 Insulin 100 unit/mL Cartridge See Rx Instructions .ROUTE .COMPLEX Rx Instructions: pump multivitamin Tablet 1 tablet PO QAM clopidogrel 75 mg Tablet 75 mg PO DAILY sodium chloride 5 % Ointment 1 applic EACH EYE HS Rx Instructions: 4 inch into both eyes timolol 0.5 % Drops 1 drp EACH EYE BID dorzolamide 2 % Drops 1 drp EACH EYE BID pitavastatin calcium [Livalo] 1 mg Tablet 1 mg PO USEASDIRECTD cyclosporine 0.05 % Drops 1 drp EACH EYE Q12H Baqsimi 3 mg/actuation [place],Non-Aerosol 3 mg INTRANASAL PRN PRN (Reason: Hypoglycemia) Nexletol 180 mg Tablet 180 mg PO USEASDIRECTD Follow-up/Referrals: PHYSICIAN,[facility] MANAGER [Primary Care Provider] - Time of Disposition: 20:17
[2024-09-03 20:02] VITALS: BP 149/74; PULSE 88; RESP 16; TEMP 36.6; O2SAT 100
== END 2024-09-03 20:20 | disposition short-term general hospital (02) ==
PROVIDERS: Emergency Provider Nurse Practitioner Family
DX: Z48.01 Encounter for change or removal of surgical wound dressing (principal); L89.892 Pressure ulcer of other site, stage 2; Z89.512 Acquired absence of left leg below knee; E10.22 Type 1 diabetes mellitus with diabetic chronic kidney disease; N18.9 Chronic kidney disease, unspecified; Z79.01 Long term (current) use of anticoagulants
CPT/HCPCS: 99212; G0463